=== PATIENT | female | born 1990 | race Two or more races ===

== ENCOUNTER 2017-02-26 11:18 | Emergency (ER) | payer MEDICAID ==
[2017-02-26 12:22] LABS: % IMMATURE GRANULYOCYTES 0.6 % (0.0-1.1); ABSOLUTE IMMATURE GRANULOCYTES 0.04 10^3/uL (0.00-0.10); ADD DIFF? NO; ADD MORPH? NO; ADD SCAN? NO; ATYPICAL LYMPHOCYTE FLAG 20 (0-99); FRAGMENT RBC FLAG 0 (0-99); HEMATOCRIT 45.1 % (38.0-47.0); HEMOGLOBIN 15.4 g/dL (12.6-16.3); LEFT SHIFT FLG 0 (0-99); LIPEMIA HEMOLYSIS FLAG 90 (0-99); MEAN CELL HEMOGLOBIN CONCENTR. 34.1 g/dL (32.4-36.7); MEAN CELL VOLUME 93.8 fL (81.5-99.8); MEAN PLATELET VOLUME 10.2 fL (8.7-11.7); PLATELET CLUMPS FLAG 0 (0-99); PLATELET COUNT 257 10^3/uL (150-400); RED BLOOD CELL COUNT 4.81 10^6/uL (4.18-5.33); RED CELL DISTRIBUTION WIDTH 12.5 % (11.5-15.2)
[2017-02-26 12:42] LABS: ANION GAP 14 mEq/L (8-16); CALCIUM 9.6 mg/dL (8.5-10.4); CARBON DIOXIDE 20 mEq/l (22-31); CHLORIDE 108 mEq/L (97-110); CREATININE 0.6 mg/dL (0.6-1.0); GLOMERULAR FILTRATION RATE > 60; GLUCOSE 89 mg/dL (70-100); POTASSIUM 4.5 mEq/L (3.5-5.2); SODIUM 142 mEq/L (134-144)
[2017-02-26] MEDS ORDERED: GADOBUTROL 10 ML VIAL IVP ONE (13:00)
--- NOTE | 2017-02-26 14:40 | EDPHY ---
H & P Time Seen by Provider: 02/26/17 11:42 HPI/ROS: CHIEF COMPLAINT: Aphasia, hearing loss right ear HISTORY OF PRESENT ILLNESS: 26-year-old female presents to the emergency department with expressive aphasia and hearing loss in her right ear intermittently for the last 2 months. Patient has a history of stage III uterine cancer and was treated with chemotherapy finishing in March of 2015. She was told that 1 of her chemotherapy drugs could possibly be related to strokes. She states 2 months ago she began having hearing loss in her right ear followed by expressive aphasia. She states the episodes last approximately 10 minutes and then will resolve. She typically gets 2 episodes per week for the last 2 months. This is not accompanied by headache or dizziness. No chest pain or difficulty breathing. No dysphagia. No pain in her right ear currently although earlier today she did have associated pain with the hearing loss. No dizziness or neck pain. REVIEW OF SYSTEMS: Constitutional: No fever, no chills. Eyes: No double or blurry vision. ENT: No sore throat. Respiratory: No cough, no shortness of breath. Cardiac: No chest pain. Gastrointestinal: No abdominal pain, vomiting or diarrhea. Genitourinary: No dysuria. Musculoskeletal: No neck or back pain. Skin: No rashes. Neurological: No headache. 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 Vital signs are stable. Mentating normally and answering questions appropriately. Eyes: Pupils equal and round. Extraocular motions are all intact. ENT: Mouth: Mucous membranes moist. Respiratory: No wheezing, rhonchi, or rales, lungs are clear to auscultation. Cardiovascular: Regular rate and rhythm. Gastrointestinal: Abdomen is soft and nontender, no masses, no rebound or guarding, bowel sounds normal. Neurological: Alert and oriented x 3, cranial nerves II through XII grossly intact Skin: Warm and dry, no rashes. Musculoskeletal: Nontender to palpate along the cervical, thoracic or lumbar spine. Neck is supple. Extremities: Full range of motion and no peripheral edema. Psychiatric: Patient is oriented X 3, there is no agitation. Constitutional: Initial Vital Signs Temperature (C) 36.7 C 02/26/17 11:21 Heart Rate 61 02/26/17 11:21 Respiratory Rate 18 02/26/17 11:21 Blood Pressure 119/80 02/26/17 11:21 O2 Sat (%) 100 02/26/17 11:21 O2 Delivery Mode Room Air Allergies/Adverse Reactions: No Known Allergies Allergy (Verified 02/26/17 11:21) Home Medications: Medication Instructions Recorded NK [No Known Home Meds] 10/24/15 Medical Decision Making - Diagnostics Imaging Results: Imaging Impressions Brain MRI 02/26/17 12:15 Impression: Normal MRI of the brain without and with contrast. Findings and recommendations discussed with Emergency Department physician, AMY CORTES at 14:19 hour, 02/26/2017. Final report concurs with initial preliminary interpretation. Neck MRA 02/26/17 12:15 Impression: MRA of the cervical carotids and vertebrals demonstrate no evidence of flow-limiting stenosis, occlusion, or dissection. Measurements of carotid stenosis is based on the residual internal carotid diameter with [place] Symptomatic Carotid Endarterectomy Trial (NASCET) based stenosis levels. Findings and recommendations discussed with Emergency Department physician, Amy Cortes, at 1423 hours on February 26, 2017. Final report concurs with initial preliminary interpretation. Imaging: Discussed imaging studies w/ [employer] associate Radiologist ED Course/Re-evaluation: 26-year-old female presents to the emergency department with intermittent hearing loss and expressive aphasia for last 2 months. I spoke with Dr. Brooks Emmanuel, on-call neurologist, recommended MRI without and with contrast of the brain as well as MRA without contrast of the neck. Her imaging studies were all within normal limits. The patient is comfortable being discharged home. The case was also discussed with Dr. Suyapa Adrian, supervising physician, who did not directly evaluate the patient but agrees with imaging studies, treatment and plan. Differential Diagnosis: Including but not limited to TIA, metastasis, CVA, intracranial bleed - Data Points Laboratory Results: Laboratory Results 02/26/17 12:12 02/26/17 12:12 02/26/17 02/26/17 02/26/17 12:12 12:12 12:08 WBC 6.21 10^3/uL 10^3/uL (3.80-9.50) RBC 4.81 10^6/uL 10^6/uL (4.18-5.33) Hgb 15.4 g/dL g/dL (12.6-16.3) POC Hgb 16.7 gm/dL H gm/dL (12.6-16.3) Hct 45.1 % % (38.0-47.0) POC Hct 49 % H % (38-47) MCV 93.8 fL fL (81.5-99.8) MCH 32.0 pg pg (27.9-34.1) MCHC 34.1 g/dL g/dL (32.4-36.7) RDW 12.5 % % (11.5-15.2) Plt Count 257 10^3/uL 10^3/uL (150-400) MPV 10.2 fL fL (8.7-11.7) Neut % (Auto) 60.2 % % (39.3-74.2) Lymph % (Auto) 29.8 % % (15.0-45.0) [place] % (Auto) 6.4 % % (4.5-13.0) Eos % (Auto) 1.9 % % (0.6-7.6) Baso % (Auto) 1.1 % % (0.3-1.7) Nucleat RBC Rel Count 0.0 % % (0.0-0.2) Absolute Neuts (auto) 3.73 10^3/uL 10^3/uL (1.70-6.50) Absolute Lymphs (auto) 1.85 10^3/uL 10^3/uL (1.00-3.00) Absolute Monos (auto) 0.40 10^3/uL 10^3/uL (0.30-0.80) Absolute Eos (auto) 0.12 10^3/uL 10^3/uL (0.03-0.40) Absolute Basos (auto) 0.07 10^3/uL 10^3/uL (0.02-0.10) Absolute Nucleated RBC 0.00 10^3/uL 10^3/uL (0-0.01) Immature Gran % 0.6 % % (0.0-1.1) Immature Gran # 0.04 10^3/uL 10^3/uL (0.00-0.10) POC Sodium 143 mEq/L mEq/L (134-144) Sodium 142 mEq/L mEq/L (134-144) POC Potassium 4.0 mEq/L mEq/L (3.3-5.0) Potassium 4.5 mEq/L mEq/L (3.5-5.2) POC Chloride 103 mEq/L mEq/L (97-110) Chloride 108 mEq/L mEq/L (97-110) Carbon Dioxide 20 mEq/l L mEq/l (22-31) Anion Gap 14 mEq/L mEq/L (8-16) POC BUN 15 mg/dL mg/dL (7-23) BUN 15 mg/dL mg/dL (7-23) Creatinine 0.6 mg/dL mg/dL (0.6-1.0) POC Creatinine 0.6 mg/dL mg/dL (0.6-1.0) Estimated GFR > 60 Glucose 89 mg/dL mg/dL (70-100) POC Glucose 93 mg/dL mg/dL (70-100) Calcium 9.6 mg/dL mg/dL (8.5-10.4) Point of Care Test Results: 02/26/17 12:08 POC Sodium 143 POC Potassium 4.0 POC Chloride 103 POC BUN 15 POC Creatinine 0.6 POC Glucose 93 Departure - Departure Disposition: Home, Routine, Self-Care Clinical Impression: Expressive aphasia Hearing loss in right ear Qualifiers: Hearing loss type: unspecified Qualified Code(s): H91.91 - Unspecified hearing loss, right ear Condition: Good Instructions: Hearing Loss (ED) Additional Instructions: Follow-up with neurologist this week. When you call to arrange for a follow-up appointment, tell them that you were seen in the emergency department and we spoke with Dr. Brooks Emmanuel while you were here and they want to see you for follow-up. Referrals: Brooks Emmanuel MD [Medical Doctor] - 2-3 days without fail (Neurologist on-call)
[2017-02-26 15:51] VITALS: BP 98/62; PULSE 88; RESP 15; TEMP 98.2; O2SAT 97
== END 2017-02-26 15:35 | disposition home or self-care (01) ==
DX: R47.01 Aphasia (principal); H91.91 Unspecified hearing loss, right ear; Z85.118 Personal history of other malignant neoplasm of bronchus and lung; Z85.41 Personal history of malignant neoplasm of cervix uteri
CPT/HCPCS: 82947-QW; A9585

== ENCOUNTER → 2017-03-11 | Outpatient (CLI) | payer MEDICAID ==
--- NOTE | 2017-03-12 12:28 | CPEEG ---
[f rep st] ELECTROENCEPHALOGRAM A 4-HOUR VIDEO EEG. DATE OF STUDY: 03/12/2017 DATE OF INTERPRETATION: 03/12/2017 INTERPRETATION: This 4-hour video EEG recording is normal. There were no potentially epileptogenic abnormalities present during the recording. During the video EEG monitoring session, the patient did not have any clinical events. REPORT: This 4-hour video EEG contains 10 Hz alpha activity to the posterior head regions. There was no abnormal activation at rest, during photic stimulation, or hyperventilation. The patient became drowsy and fell into sustained sleep during this study. There was no abnormal activation during drowsiness, sustained sleep, or during times of arousal. The patient did not have any clinical events during the video EEG monitoring session. /[id number]/MODL MTDD
== END ==
LOC: FCPNEURO 08:51
PROVIDERS: ATTEND Psychiatry & Neurology Neurology
DX: R47.01 Aphasia (principal)

== ENCOUNTER → 2017-10-22 | Outpatient (CLI) | payer MEDICAID | LOC: FIMAGING 09:40 | PROVIDERS: ATTEND Physician Assistant Medical | DX: N64.4 Mastodynia (principal); Z85.42 Personal history of malignant neoplasm of other parts of uterus ==

== ENCOUNTER 2017-12-04 12:53 | Emergency (ER) | payer MEDICAID ==
--- NOTE | 2017-12-04 13:42 | EDPHY ---
H & P Time Seen by Provider: 12/04/17 13:25 HPI/ROS: Chief complaint. Sore throat HPI. 27-year-old female with 3 day history sore throat. She felt she saw some white spots on the posterior left part of her throat. She has had cough and some headache. No fever but occasional chills. Her daughter has been sick with ear infection. No abdominal pain. No shortness of breath. ROS Constitutional. Chills Eyes. no problems with vision ENT. Sore throat Cardiovascular. no chest pain Respiratory. Cough Abdominal. no abdominal pain, no nausea/vomiting, no diarrhea . no problems urinating MS. no calf pain/swelling, no neck/back pain, no joint pain Skin. no rash Lymph. no swollen glands Neuro. no headache, no dizziness, no difficulty walking or with speech Past Medical/Surgical History: Oophorectomy, molar , choriocarcinoma, hysterectomy Social History: , nonsmoker, no alcohol Smoking Status: Never smoked Physical Exam: General Appearance: Alert pleasant well-developed female mild distress vital signs are stable Eyes: Pupils equal and round no pallor or injection. ENT, tympanic membranes are normal. Pharynx injected without exudate. Mucous membranes are moist Respiratory: There are no retractions, lungs are clear to auscultation. Cardiovascular: Regular rate and rhythm. Gastrointestinal: Abdomen is soft and nontender, no masses, bowel sounds normal. Neurological: Awake and alert, sensory and motor exams grossly normal. Skin: Warm and dry, no rashes. Musculoskeletal: Neck is supple nontender. Extremities symmetrical, full range of motion. Psychiatric: Patient is oriented X 3, there is no agitation. Constitutional: Initial Vital Signs Temperature (C) 36.7 C 12/04/17 12:54 Heart Rate 73 12/04/17 12:54 Respiratory Rate 16 12/04/17 12:54 Blood Pressure 106/70 12/04/17 12:54 O2 Sat (%) 96 12/04/17 12:54 O2 Delivery Mode Room Air Allergies/Adverse Reactions: No Known Allergies Allergy (Verified 02/26/17 11:21) Home Medications: Medication Instructions Recorded NK [No Known Home Meds] 10/24/15 Medical Decision Making Procedures: Rapid strep screen Decadron orally in the ED ED Course/Re-evaluation: Re-evaluation 2:25 pm--the patient is stable. She and I discussed laboratory evaluation, treatment plan, criteria for return, importance of follow-up and further evaluation. She expresses understanding Differential Diagnosis: I considered strep pharyngitis, viral syndrome. - Data Points Laboratory Results: 12/04/17 12/04/17 Unknown 13:45 Group A Strep Screen NEGATIVE (NEGATIVE) Group A Strep DNA Pending Departure - Departure Disposition: Home, Routine, Self-Care Clinical Impression: Pharyngitis Qualifiers: Pharyngitis/tonsillitis etiology: unspecified etiology Qualified Code(s): J02.9 - Acute pharyngitis, unspecified Condition: Good Instructions: Pharyngitis (ED) Additional Instructions: Drink plenty of fluids and stay hydrated. Tylenol 650 mg every 4-6 hours, ibuprofen 600 mg every 6 hr as needed for discomfort. Return for worsening symptoms. Recheck in 2-3 days if not improved Referrals: Karen Rinaldi, PAC [Primary Care Provider] - 2-3 days, if not improved
[2017-12-04] MEDS ORDERED: DEXAMETHASONE 4 MG TAB PO ONE (14:25)
[2017-12-04 15:16] VITALS: BP 108/74
== END 2017-12-04 15:00 | disposition home or self-care (01) ==
DX: J02.9 Acute pharyngitis, unspecified (principal)